=== PATIENT | male | born 1940 | race Caucasian/White ===

== ENCOUNTER 2017-03-27 07:59 | Day surgery (SDC) | payer MEDICARE, MEDICAID ==
[~2017-03-27] VITALS: Ht 180.3 cm; Wt 79.2 kg
--- NOTE | 2017-04-01 07:16 | OR ---
ADMIT: 03/27/2017 RM/LOC: [facility] MR#: [id number] [id number] [place], [place] [id number] [address] [place] [id number] Operative/Delivery Room Report SEX: M AGE: 77 : 1940 SURGERY DATE: 03/27/2017 SURGEON: Roberto Brown MD PREOPERATIVE DIAGNOSIS: Parkinson disease with internal pulse generator with need for replacement. POSTOPERATIVE DIAGNOSIS: Parkinson disease with internal pulse generator with need for replacement. PROCEDURE: 1. Removal and replacement of internal pulse generator connected to two intracranial electrode systems at the end of its useful life expectancy. 2. Intraoperative interrogation and programming of internal pulse generator connected to two intracranial electrodes. DESCRIPTION OF PROCEDURE: After gaining informed consent, the patient was taken to the operative theater, placed under general endotracheal anesthesia in supine position. A time-out was utilized to ascertain the correct site and side of surgery as well as other pertinent patient historical information. Counts were obtained at the beginning and end of the case with no change betwixt the two. Antibiotics were given within 1 hour. Incision in the left clavicular region was opened, this was then taken down to internal pulse generator which was removed. Multiple glove changes were used throughout this case. The new internal pulse generator was brought into the field and connected and then placed back into the pocket. Preoperatively, the impedances were over 12,000 with the #11 electrode from the left brain stimulator. Everything else was within normal range. The intraoperative programming revealed that to be greater than 40,000. I removed and then reimplanted in a couple of occasions the leads into the internal pulse generator, it did not seem to make any difference. At the end, the impedances with the exception of that #11 electrode from the left brain were within normal limits, and settings were reprogrammed. Attention was turned to closure. The wound was closed with multiple layers with simple inverted ADMIT: 03/27/2017 RM/LOC: [facility] MR#: [id number] [address] [id number] [address], [place] [address] Operative/Delivery Room Report SEX: M AGE: 77 : 1940 interrupted 2-0 Vicryl and subcuticular 3-0 Stratafix on the skin with Steri- Strips over that. COMPLICATIONS: None. ESTIMATED BLOOD LOSS: Charted. SPECIMEN: None. DISPOSITION: Extubated and taken to postanesthesia care unit. BARREL BURNER: None. Roberto Brown MD/ taylor JOB #: [id number] CC: Roberto Brown, Attending Physician Robby Resendiz DO, Family Physician
== END 2017-03-27 14:20 | disposition home or self-care (01) ==
LOC: SSS 07:59
PROC: 0JH Subcutaneous Tissue and Fascia, Insertion (ICD-10-PCS; principal; 2017-03-27)
PROC: 0JPT0MZ Removal of Stimulator Generator from Trunk Subcutaneous Tissue and Fascia, Open Approach (ICD-10-PCS; principal; 2017-03-27)
DX: Z46.2 Encounter for fitting and adjustment of other devices related to nervous system and special senses (principal); G20 Parkinson's disease; Z79.899 Other long term (current) drug therapy; Z98.890 Other specified postprocedural states